=== PATIENT | female | born 2000 | race Caucasian/White ===

== ENCOUNTER 2023-12-30 09:30 | Outpatient (CLI) | payer OTHER ==
--- NOTE | 2023-12-30 22:19 | XRAY Report ---
PROCEDURE: Ankle 3+V LT INDICATIONS: SPRAIN OF UNSPECIFIED LIGAMENT OF LEFT ANKLE TECHNIQUE: 3 views of the ankle were acquired. COMPARISON: None. FINDINGS: Bones: No acute fractures or dislocations. Ankle mortise is normally aligned. No suspicious bony l esions. Soft tissues: Small tibiotalar joint effusion. Achilles tendon appears normal. Moderate soft tissu e swelling over the medial and lateral malleolus. IMPRESSION: Moderate medial and lateral malleolar soft tissue swelling with tibiotalar joint effusion. No underly ing fracture or dislocation. If there is continued clinical concern for pathology or occult fracture, consider follow-up imaging w ith repeat radiographs in 10-14 days and possible advanced imaging (CT, MRI, bone scan) if symptoms p ersist. Reviewed by: Jesus Fowler MD on 12/30/2023 10:17 PM PDT Approved by: Jesus Fowler MD on 12/30/2023 10:17 PM PDT Station ID: [id number]
== END 2023-12-30 09:45 | disposition home or self-care (01) ==
LOC: DI.N 09:30
PROVIDERS: ATTEND Nurse Practitioner
DX: S93.402A Sprain of unspecified ligament of left ankle, initial encounter (principal)